=== PATIENT | female | born 1945 | race Caucasian/White ===

== ENCOUNTER 2017-11-10 12:46 | Emergency (ER) | payer MEDICARE ==
--- NOTE | 2017-11-10 13:18 | ED PDOC ---
Arrival/HPI - General Historian: Patient - History of Present Illness Time/Duration: Other (1 a.m.) Symptom Onset: Sudden Symptom Course: Unchanged Quality: Aching Activities at Onset: Light Context: Walking - General Chief Complaint: Trauma Time Seen by Provider: 11/10/17 12:49 - History of Present Illness Narrative History of Present Illness (Text): 11/10/17 13:12 Patient is a 72 F with Past medical history significant for hypertension, diabetes mellitus, vertigo who presents with complaints of headache, wrist and facial pain status post falls. Patient parked a few blocks away her house and around 1 a.m. when walking to her apartment patient tripped on uneven concrete pavement. Patient states she was able to get up and walk to her home. She did not tell her daughter until this afternoon regarding fall. Patient states she did not experience vertigo or loss of consciousness during fall. Patient admits to current headache, facial and b/l wrist pain. Denies nausea, vomiting, dizziness, weakness, chest pain, palpitations. (Yobani Darby) Past Medical History - Provider Review Nursing Documentation Reviewed: Yes - Cardiac Hx Cardiac Disorders: Yes Hx Hypertension: Yes - Pulmonary Hx Respiratory Disorders: No - Neurological Hx Neurological Disorder: Yes HX Cerebrovascular Accident: Yes (2009) Hx Dizziness: Yes - HEENT Hx HEENT Disorder: Yes Hx Cataracts: Yes - Renal Hx Renal Disorder: No - Endocrine/Metabolic Hx Endocrine Disorders: No - Hematological/Oncological Hx Blood Disorders: No - Integumentary Hx Dermatological Disorder: No - Musculoskeletal/Rheumatological Hx Musculoskeletal Disorders: No - Gastrointestinal Hx Gastrointestinal Disorders: No - Genitourinary/Gynecological Hx Genitourinary Disorders: No - Psychiatric Hx Psychophysiologic Disorder: No Hx Substance Use: No - Surgical History Hx Eye Surgery: Yes Other/Comment: left wrist. back surgery Family/Social History - Physician Review Nursing Documentation Reviewed: Yes Family/Social History: Unknown Family HX, Other Smoking Status: Never Smoked Hx Alcohol Use: No Hx Substance Use: No Allergies/Home Meds Allergies/Adverse Reactions: Allergies No Known Allergies Allergy (Verified 11/10/17 13:09) Home Medications: Home Meds Medication Instructions Recorded Confirmed Aspirin [Aspirin EC] 325 mg PO DAILY 11/10/17 11/10/17 Review of Systems - Physician Review All systems were reviewed & negative as marked: Yes - Review of Systems Constitutional: Normal. absent: Fatigue, Fevers Eyes: Normal. absent: Vision Changes ENT: Normal. absent: Hearing Changes Respiratory: Normal. absent: SOB, Cough Cardiovascular: Normal. absent: Chest Pain, Palpitations Gastrointestinal: Normal. absent: Abdominal Pain, Nausea, Vomiting Genitourinary Female: Normal Musculoskeletal: absent: Back Pain, Neck Pain (b/l wrist pain) Skin: Normal Neurological: Headache. absent: Dizziness, Focal Weakness, Speech Changes Endocrine: Normal Hemo/Lymphatic: Normal. absent: Easy Bleeding Psychiatric: Normal. absent: Anxiety Physical Exam Vital Signs Reviewed: Yes Temperature: Afebrile Blood Pressure: Hypertensive Pulse: Regular Respiratory Rate: Normal Appearance: Positive for: Well-Appearing Pain Distress: None Mental Status: Positive for: Alert and Oriented X 3 - Systems Exam Head: Present: Atraumatic, Normocephalic Pupils: Present: PERRL Extroacular Muscles: Present: EOMI Conjunctiva: Present: Normal Mouth: Present: Moist Mucous Membranes Neck: Present: Normal Range of Motion. No: MIDLINE TENDERNESS, Paraspinal Tenderness Respiratory/Chest: Present: Clear to Auscultation, Good Air Exchange. No: Accessory Muscle Use, Wheezes, Rhonchi Cardiovascular: Present: Regular Rate and Rhythm, Normal S1, S2. No: Murmurs Abdomen: No: Tenderness, Distention Upper Extremity: No: Normal Inspection (abrasion on right wrist), Cyanosis, Edema Lower Extremity: No: Normal Inspection (erythema of knees bilaterally) Neurological: Present: GCS=15, CN II-XII Intact, Speech Normal Skin: Present: Other (facial abrasions (nasal bridge) as well as right wrist) Psychiatric: Present: Alert, Oriented x 3, Normal Insight, Normal Concentration Vital Signs Temp Pulse Resp BP Pulse Ox 11/10/17 16:06 98 F 82 19 123/74 11/10/17 12:49 97.9 F 92 H 16 182/95 H 98 Medical Decision Making Re-evaluation Time: 14:52 ED Course and Treatment: Patient Seen With Resident: In agreement with resident note which contains more details about the patient. Patient was seen and evaluated with resident. Came up with plan and treatment together. (Hamilton Torres) 11/10/17 13:22 -Will give tylenol for pain control -CT head and maxillofacial region ordered -X-ray of knees and wrists ordered as well -Clean wounds, bacitracin -Tetanus up to date 11/10/17 14:52 -CT head reveals chronic ischemic lacunar changes, no acute hemorrhage -Maxillofacial CT reveals right nasal bone fracture -Patient refused bilateral knee x-rays (Yobani Darby) - RAD Interpretation Radiology Orders: 11/10/17 13:08 HEAD W/O CONTRAST [CT] Stat MAXILLOFACIAL W/O CONTRAST [CT] Stat WRIST 3 VIEWS BI [RAD] Stat KNEES BILATERAL [RAD] Stat - Medication Orders Current Medication Orders: Discontinued Medications Acetaminophen (Tylenol 325mg Tab) 650 mg PO STAT STA Stop: 11/10/17 13:09 Last Admin: 11/10/17 13:48 Dose: 650 mg MAR Pain/Vitals Document 11/10/17 13:48 GMI (Rec: 11/10/17 13:48 GMI [id number]) Pain Reassessment Is This A Pain ReAssessment? Yes Sleep Is patient sleeping during reassessment? No Presence of Pain Presence of Pain Yes Location Pain Location Body Site Face Description Intermittent Intensity 5 Scale Used Numeric Pain Behavior Facial Grimacing Alleviating Factors Medication Disposition/Present on Arrival - Present on Arrival Any Indicators Present on Arrival: No History of DVT/PE: No History of Uncontrolled Diabetes: No Urinary Catheter: No History of Decub. Ulcer: No History Surgical Site Infection Following: None - Disposition Have Diagnosis and Disposition been Completed?: Yes Disposition Time: 17:08 Patient Plan: Admission - Disposition Diagnosis: Nasal bone fracture, Wrist fracture Disposition: HOME/ ROUTINE Patient Problems: Current Active Problems Problem Status Onset Nasal bone fracture Acute Wrist fracture Acute Condition: FAIR Discharge Instructions (ExitCare): Wrist Fracture (DC), Nose Fracture (DC) Additional Instructions: Mrs. Sharp, thank you for letting us take care of you today. The emergency medical care you received today was directed at your acute symptoms. If you were prescribed any medication, please fill it and take as directed. It may take several days for your symptoms to resolve. Return to the Emergency Department if your symptoms worsen, do not improve, or if you have any other problems. Please contact your doctor or call one of the physicians/clinics you have been referred to that are listed on the Patient Visit Information form that is included in your discharge packet. Bring any paperwork you were given at discharge with you along with any medications you are taking to your follow up visit. Our treatment cannot replace ongoing medical care by a primary care provider (PCP) outside of the emergency department. Please call and make an appointment with ENT surgeon Dr. Contreras regarding the nasal bone fracture as well as Dr. Mendoza regarding the bilateral wrist injury. Thank you for allowing the [facility] team to be part of your care today. If you had an X-Ray or CT scan: A Radiologist will review the ED reading if any change in treatment is needed we will contact you. If you had a blood, urine, or wound culture: It will take several days for the results, if any change in treatment is needed we will contact you. If you had an STI test: It will take 48 hours for the results. Please call after 1 week if you have not heard back. Prescriptions: Acetaminophen [Tylenol] 650 mg PO Q6 #28 capsule Referrals: Danilo Mendoza III, MD [Medical Doctor] - Follow up with primary Alf Klein DO [Staff Provider] - Follow up with primary Forms: [employer] ([place])
--- NOTE | 2017-11-10 14:30 | CT ---
PROCEDURE: CT scan brain dated 11/10/2017 HISTORY: Status post fall COMPARISON: Comparison made with CT scan brain 05/20/2015. TECHNIQUE: Axial computed tomography images were obtained through the head/brain without intravenous contrast. Radiation dose: Total exam DLP = 810.08 mGy-cm. This CT exam was performed using one or more of the following dose reduction techniques: Automated exposure control, adjustment of the mA and/or kV according to patient size, and/or use of iterative reconstruction technique. FINDINGS: HEMORRHAGE: No acute parenchymal, subarachnoid or extra-axial the hemorrhage. BRAIN: Mild moderate mobile the the diffuse/ confluent chronic white matter ischemic changes. Suspect few scattered chronic bilateral basal nuclei and brainstem lacunar type infarcts. Moderate to fairly significant generalized volume loss. Minor vascular calcifications both carotid siphons. VENTRICLES: No obstructive hydrocephalus. CALVARIUM: Unremarkable. PARANASAL SINUSES: Unremarkable as visualized. No significant inflammatory changes. MASTOID AIR CELLS: Unremarkable as visualized. No inflammatory changes. OTHER FINDINGS: Changes of bilateral cataract surgery. IMPRESSION: No acute intracranial hemorrhage. Mild moderate chronic white matter ischemic changes. . Suspect few scattered chronic bilateral basal nuclei and brainstem lacunar type infarcts. Moderate to fairly significant generalized volume loss.
--- NOTE | 2017-11-10 14:44 | CT ---
PROCEDURE: CT scan maxillofacial skeleton dated 11/10/2017 HISTORY: Status post fall COMPARISON: Correlation made with concurrent CT scan brain TECHNIQUE: Contiguous helical/transaxial CT images of the maxillofacial bones were obtained. Coronal and sagittal reformats were generated. Radiation dose: Total exam DLP = 620.87 mGy-cm. This CT exam was performed using one or more of the following dose reduction techniques: Automated exposure control, adjustment of the mA and/or kV according to patient size, and/or use of iterative reconstruction technique. . FINDINGS: NASAL BONES: Suspect minimally displaced right anterior nasal bone fracture deformity ORBITS: Bony orbits intact. Globes intact. Changes of bilateral cataract surgery. No retrobulbar hemorrhages or collections. PARANASAL SINUSES/ MASTOIDS: Paranasal sinuses well-developed and currently well-aerated. MAXILLA: Unremarkable. MANDIBLE/ TEMPOROMANDIBULAR JOINTS: Unremarkable. SKULL BASE: Unremarkable. TEMPORAL BONES: Middle ears and mastoid grossly unremarkable. OTHER FINDINGS: Minor vascular calcifications both carotid siphons. IMPRESSION: Suspect minimally displaced right anterior nasal bone fracture deformity Changes of bilateral cataract surgery.
[2017-11-10 16:07] VITALS: TEMP 98
--- NOTE | 2017-11-10 17:16 | RAD ---
PROCEDURE: Bilateral Wrists Radiographs. HISTORY: Status post fall COMPARISON: None. FINDINGS: BONES: Right Carpal Bones: Normal. No fracture or degenerative changes. Left Carpal Bones: Normal. No fracture or degenerative changes. Right Distal Radius and Ulna: No fracture or degenerative changes. Left Distal Radius and Ulna: No fracture or degenerative changes. JOINT SPACES: Right Wrist: Normal. No degenerative changes. 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 . SOFT TISSUES: Right Wrist: Normal. Left Wrist: Normal. OTHER FINDINGS: None. IMPRESSION: No evidence of acute displaced fracture nor dislocation. Mild DJD left wrist as described.
[2017-11-10 18:08] VITALS: BP 132/75; PULSE 75; RESP 20; O2SAT 99
== END 2017-11-10 18:06 | disposition home or self-care (01) ==
LOC: ED 12:46
DX: S02.2XXA Fracture of nasal bones, initial encounter for closed fracture (principal); S62.109A Fracture of unspecified carpal bone, unspecified wrist, initial encounter for closed fracture; W01.0XXA Fall on same level from slipping, tripping and stumbling without subsequent striking against object, initial encounter